=== PATIENT | female | born 1995 | race Two or more races ===

== ENCOUNTER 2019-01-21 07:04 | Emergency (ER) | payer OTHER ==
[~2019-01-21] VITALS: Ht 162.6 cm; Wt 88.5 kg
[2019-01-21 07:17] VITALS: BP 108/56; Ht 162.6 cm; Wt 88.5 kg
== END 2019-01-21 07:40 | disposition home or self-care (01) ==
LOC: ED 07:04
DX: N39.0 Urinary tract infection, site not specified (principal); E66.9 Obesity, unspecified; Z68.33 Body mass index [BMI] 33.0-33.9, adult